=== PATIENT | female | born 1980 | race Caucasian/White ===

== ENCOUNTER → 2024-06-02 15:32 | Outpatient (REF) | payer BC, SELFPAY | LOC: WDC 15:32 | PROVIDERS: ATTENDING PHYSICIAN Student in an Organized Health Care Education/Training Program | DX: Z12.31 Encounter for screening mammogram for malignant neoplasm of breast (principal) | CPT/HCPCS: 77063; 77067 ==

== ENCOUNTER 2025-03-04 02:34 | Emergency (ER) | payer BC, SELFPAY ==
[2025-03-04 02:44] VITALS: BP 160/97
[2025-03-04 03:05] LABS: Hematocrit 40.0 % (37.0-47.0); Hemoglobin 13.5 g/dL (12.0-16.0); Mean Corp Hgb Conc. 33.8 g/dL (33.0-37.0); Mean Corpuscular Volume 90.5 fL (81.0-99.0); Nucleated Red Blood Cells % 0 %; Platelet Count 230 10^3/uL (130-400); Red Cell Dist. Width 11.8 % (11.5-14.5)
[2025-03-04 03:21] LABS: ALT (SGPT) 21 U/L (0-35); AST (SGOT) 23 U/L (14-36); Albumin 4.4 g/dl (3.5-5.0); Alkaline Phosphatase 41 U/L (38-126); Blood Urea Nitrogen 20 mg/dl (7-17); Calcium 9.5 mg/dl (8.4-10.2); Carbon Dioxide 28 mmol/L (22-30); Chloride 105 mmol/L (98-107); Glucose 116 mg/dl (70-99); Potassium 4.0 mmol/L (3.5-5.1); Sodium 138 mmol/L (135-145); Total Protein 7.3 g/dl (6.3-8.2); eGFR > 60.00
[2025-03-04 03:33] LABS: Troponin I < 0.012 ng/ml
[2025-03-04 04:46] VITALS: BMI 28.9
--- NOTE | 2025-03-04 04:48 | EDRN ---
For 2 nights, pt has had sob and a stabbing pain in her R shoulder blade that feels like 'a deep stab or bee sting.' Pt has been congested for 1 week with a cold. Pain comes and goes. Yesterday pt took advil which helped the pain. Throughout the
day yesterday, pain was 'fine.' Pain worse when she lies down 'I can feel it now but it isn't terrible.' Little cough with yellow phlegm, no fever/chills. No abd pain n/v/c/d, urinary symptoms. Pt's son has a cold. No sore throat or ear pain.
Pt has been having intermittent 'I need caffeine' headaches in the morning. Pt adds she sometimes wakes after grinding her teeth and has a headache. No recent air travel/long car rides, leg pain.
[2025-03-04 04:53] VITALS: BP 124/74
[2025-03-04 05:31] LABS: COVID-19 Antigen Negative (Negative)
[2025-03-04 08:15] VITALS: BP 128/96
--- NOTE | 2025-03-04 08:19 | ED.MUSCINJ ---
HPI-Injury
General
Chief Complaint: Musculo-Skeletal Complaint
Source: patient
Exam Limitations: none
Time Seen by Provider: 03/04/25 08:08
History of Present Illness-Injury
Initial Injury comments:
44-year-old female otherwise healthy presents complaining of about a weeks worth of a cough congestion and respiratory illness. This was also accompanied by several days worth of discomfort in the right shoulder blade and some shortness of breath.
No recent surgeries or travel. No leg swelling or calf pain. The pain is not pleuritic. She took an ibuprofen for the discomfort and seem to help. She is concerned about the potential for pulmonary embolism or heart attack. She denies any
abdominal surgery history. No paresthesias to the arms or legs. There has been no fever associated with this or mopped assist.
Phy Exam
Physical Exam
Physical Exam:
General: Well-appearing female no acute respiratory distress HEENT normal cephalic atraumatic
Heart: Regular rate and rhythm
Lungs: Clear no wheeze
Abdomen is soft nontender
Extremities: No cyanosis or edema no calf tenderness
Sepsis
Sepsis Screening
Sepsis Assessment: Sepsis Ruled Out
Sepsis Screen
Sepsis Screen: Sepsis Ruled Out
Date: 03/04/25
Time: 09:19
Injury Course
Orders/Labs/Results
Orders:
Orders
03/04/25 02:36
Electrocardiogram (*1) Urgent
Reason for Study: Other
Other Reason for Exam: Respiratory Distress
EKG- Treatment ONCE
CR Chest - 2 Views Urgent
Comment:
Reason For Exam: respiratory distress
O2 Therapy [RESP] Urgent
Titrate/Wean O2 to maintain O2 sat greater than (%): 93
Special Instructions: TO MAINTAIN CONTINUOUS O2 SATS >/= 93%
Pulse Ox/cont/shift [RESP] Urgent
Quantity: 1
Special Instructions: continuous pulse ox
03/04/25 02:58
Complete Blood Count/With Diff Urgent
Comprehensive Metabolic Panel Urgent
NT-proBNP Urgent
Troponin I Urgent
03/04/25 04:57
COVID-19 Antigen Urgent
Source: Nasal Swab
Influenza A+B Rapid Molecular Urgent
BAYRON Source: Nasal Swab
Specimen Description:
03/04/25 08:24
D-Dimer Urgent
Abnormal Lab Results
03/04/25
02:58
BUN 20 H mg/dl
(7-17)
Glucose 116 H mg/dl
(70-99)
03/04/25 02:58
03/04/25 02:58
MDM/Problems Addressed
Differential Diagnosis Includes:
Shortness of breath cough with right shoulder blade discomfort. Consider pneumonia versus COVID or flu versus ACS or PE. Patient really has low risk factors for PE. She is not tachycardic nor she hypoxic. Initial workup through triage
demonstrated normal-appearing chest x-ray choice I have personally visualized, undetectable troponin negative COVID and flu test. Will add a D-dimer.
*Pulse Oximetry
SaO2: 99
Oxygen Mode of Delivery: Room air
Patient hypoxic: no
*Critical Care Note
Total Time (30-74mins, 75-104mins- exclusive of procedures): Not Applicable
Update Note
Update Note:
D-dimer within normal limits. Given normal cardiac workup stable vital signs and negative D-dimer, Do not suspect PE or dissection. Question possible musculoskeletal etiology. Recommended ibuprofen for continued pain. No intervention necessary
otherwise stable for discharge
ED Attending Note
-
Portions of this chart may have been created with voice recognition software.� Occasional wrong word or��sound alike� substitutions may have occurred due to the inherent limitations of voice recognition software.
Discharge Plan
Departure
Patient Disposition: Home (Routine Discharge)
Date of Disposition: 03/04/25
Time of Disposition: 09:19
Patient with high blood pressure during this ER visit?: No
Discharge Problem:
Acute shoulder pain
Instructions: Muscle and Bone Pain (DC)
Prescriptions:
No Action
Zepbound 7.5 mg/0.5 mL Pen Injector
7.5 mg SC QWEEK
Referrals:
UNKNOWN,NO INTERVIEW [Family Provider]
Activity Restrictions/Additional Instructions:
Continue with ibuprofen if needed for pain. Return here for worsening symptoms otherwise follow-up with your doctor
Interventions
Interventions:
*Risk Screen - Suicide Last Done: 03/04/25 02:44
*General Assessment Last Done: 03/04/25 02:44
*Neglect/Abuse Screening Last Done: 03/04/25 02:44
*ED- Fall Risk Assessment Last Done: 03/04/25 02:44
*ED COVID-19 Vaccine History Last Done: 03/04/25 02:44
*ED Influenza Vaccine History Last Done: 03/04/25 02:44
ED-Musculoskeletal Assessment Last Done: 03/04/25 05:05
Discharge Date and Time
Print Language: PARAGUAYAN
[2025-03-04 08:46] LABS: D-Dimer 0.31 ug/mlFEU (0.00-0.50)
== END 2025-03-04 10:13 | disposition home or self-care (01) ==
LOC: EMR 02:34
PROVIDERS: Physician Assistant; Student in an Organized Health Care Education/Training Program; EMERGENCY PHYSICIAN Student in an Organized Health Care Education/Training Program
DX: M25.511 Pain in right shoulder (principal); R05.9 Cough, unspecified; R06.02 Shortness of breath; Z11.52 Encounter for screening for COVID-19
CPT/HCPCS: 99285; 71046; 80053; 83880; 84484; 85025; 85379; 87502; 87811; 93005